=== PATIENT | male | born 1980 | race Caucasian/White ===

== ENCOUNTER 2023-04-11 19:27 | Emergency (ER) | payer MEDICAID, SELFPAY ==
[2023-04-11 19:36] VITALS: BP 132/73; PULSE 81; RESP 14; TEMP 36.7; O2SAT 98; BMI 28.1
[2023-04-11 20:01] VITALS: BP 144/95; PULSE 68; RESP 18; O2SAT 99
--- NOTE | 2023-04-11 20:13 | PC.NURSE ---
in room talking with patient at this tie.
--- NOTE | 2023-04-11 20:16 | CT_ITS ---
PROCEDURE INFORMATION: Exam: CT Head Without Contrast Exam date and time: 04/11/2023 8:42 PM Age: 43 years old Clinical indication: Injury or trauma; Blunt trauma (contusions or hematomas); Additional info: Blunt trauma anterior calvarium TECHNIQUE: Imaging protocol: Computed tomography of the head without contrast. Radiation optimization: All CT scans at this facility use at least one of these dose optimization techniques: automated exposure control; mA and/or kV adjustment per patient size (includes targeted exams where dose is matched to clinical indication); or iterative reconstruction. REPORTING DATA: Count of CT and Cardiac NM exams in prior 12 months: This patient has received 0 known CTs and 0 known cardiac nuclear medicine studies in the 12 months prior to the current study. COMPARISON: No relevant prior studies available. FINDINGS: Brain: No intracranial hemorrhage. No mass. No edema. Cerebral ventricles: No hydrocephalus. Paranasal sinuses: No acute sinusitis. Mastoid air cells: No significant effusion. Orbital cavities: Unremarkable as visualized. Bones/joints: No acute fracture. Soft tissues: Minimal scalp swelling. IMPRESSION: No intracranial hemorrhage.
--- NOTE | 2023-04-11 20:17 | [facility].EDGENADL ---
Discharge Plan Disposition Patient Disposition: Home, Self-Care Prescriptions Prescriptions: No Action methadone 40 mg Tablet,Soluble 75 mg PO DAILY Referrals Follow up/Referrals: Provider,Referral, MD [Primary Care Provider] - See instructions Clinical Impressions Clinical Impression: Blunt trauma, Laceration of scalp Instructions Patient Instructions: DI for Laceration Repair Discharge ED Provider: Damion Scott General Adult HPI General Chief complaint: Wound/Laceration Stated complaint: AO 04/11 1900 lac to head Time Seen by Provider: 04/11/23 20:00 Mode of Arrival: Family Vehicle Source of Information: Patient Limitations: No Limitations Description of Symptoms (Recalled from ER Triage Doc. by RN): 43 yo male presents with CC of head laceration. Patient states he was helping cut down a tree when a limb approximately 3 inches in diameter dislodged and fell hitting me in the top of the head . Friend reports moderate amount of bleeding that was resolved by a pressure dressing. Denies LOC, no visual disturbances. History of Present Illness HPI narrative: Patient is a 43-year-old male with no pertinent past medical history who presents emergency department for evaluation of blunt trauma. Patient was burning brush with diesel when a approximately 3 inch diameter limb came down and struck him in the frontal scalp. Due to bleeding wound he presents here for continued valuation. Patient had near syncopal event after being struck however no true syncope. Denies other traumatic complaints. Last tetanus last year. No other acute complaints at this time. Related Data Home Medications Medication Instructions Recorded Confirmed methadone 40 mg soluble tablet 75 mg PO DAILY prevent relapse 04/11/23 04/11/23 Allergies Allergy/AdvReac Type Severity Reaction Status Date / Time No Known Allergies Allergy Verified 04/11/23 19:41 [facility] Disclaimer: The information contained in this section may have been updated after the patient was seen, as this information can be updated by other users. Social History Smoking Status: Unknown if ever smoked alcohol intake: never current occupational status: employed Travel in the last 8 weeks: None ROS Obtained: Yes Systems reviewed as appropriate & no additional complaints except as documented Physical Exam General General appearance: alert and in no apparent distress Head Head exam: normocephalic and other (Jagged laceration totaling approximately 10 cm over the frontal scalp that is oozing blood. Well approximated.) Eye Eye exam: Present PERRL and EOMI ENT ENT exam: Present mucous membranes moist and other (Tender central and lateral maxillary incisors, no excess laxity, jaw tenderness) Neck Neck exam: Present normal inspection and full ROM; Absent tenderness Chest Chest inspection: Present normal inspection and symmetric chest wall rise Respiratory Respiratory exam: Absent respiratory distress Cardiovascular Cardiovascular exam: Present regular rate and normal rhythm Abdominal Exam Abdominal exam: Present soft; Absent tenderness Extremities Exam Extremities exam: Present normal inspection Neurological Exam Neurological exam: Present alert Psychiatric Psychiatric exam: Present normal affect Skin Skin exam: Present warm and dry Medical Decision Making Timothy Inquiry Pt receiving controlled substance: No Vital Signs: 04/11/23 19:36 04/11/23 20:01 Temperature 98.0 F Temperature Source Oral Pulse Rate 68 Pulse Rate [Right Brachial] 81 Respiratory Rate 14 18 Blood Pressure 144/95 H Blood Pressure [Right Arm] 132/73 Blood Pressure Mean 111 Blood Pressure Mean [Right Arm] 92 Blood Pressure Source [Right Arm] Automatic Cuff Blood Pressure Position [Right Arm] Sitting 02 Sat by Pulse Oximetry 98 99 Oxygen Delivery Method Room Air Room Air Orders (Tests/Meds): ED MEDICATIONS Discontinued Medications Ge
--- NOTE | 2023-04-11 20:38 | PC.NURSE ---
Laceration cleaned and LAC applied to laceration. Patient to CT
--- NOTE | 2023-04-11 20:50 | PC.NURSE ---
rounded on pt and took him something to drink.
--- NOTE | 2023-04-11 21:18 | CT_ITS ---
PROCEDURE INFORMATION: Exam: CT Maxillofacial Without Contrast Exam date and time: 04/11/2023 9:26 PM Age: 43 years old Clinical indication: Jaw pain; Additional info: Anterior mandible pain, trauma TECHNIQUE: Imaging protocol: Computed tomography of the face without contrast. Radiation optimization: All CT scans at this facility use at least one of these dose optimization techniques: automated exposure control; mA and/or kV adjustment per patient size (includes targeted exams where dose is matched to clinical indication); or iterative reconstruction. REPORTING DATA: Count of CT and Cardiac NM exams in prior 12 months: This patient has received 0 known CTs and 0 known cardiac nuclear medicine studies in the 12 months prior to the current study. COMPARISON: No relevant prior studies available. FINDINGS: Orbital cavities: Unremarkable as visualized. Bones/joints: No acute fracture. Paranasal sinuses: Unremarkable. No air-fluid levels. Soft tissues: Unremarkable. IMPRESSION: No fracture.
--- NOTE | 2023-04-11 21:19 | PC.NURSE ---
Rounded on patient nothing needed at this time. Lights dimmed; nothing else needed at this time. Call light within reach
[2023-04-11 21:54] VITALS: BP 125/84; PULSE 53; RESP 16; TEMP 36.6
--- NOTE | 2023-04-11 22:00 | PC.NURSE ---
Rounded on patient , no needs voiced at this time.
== END 2023-04-11 22:10 | disposition home or self-care (01) ==
PROVIDERS: Emergency Provider Emergency Medicine
DX: S09.90XA Unspecified injury of head, initial encounter (principal); S01.01XA Laceration without foreign body of scalp, initial encounter; W20.8XXA Other cause of strike by thrown, projected or falling object, initial encounter
CPT/HCPCS: 12004; 70450; 70486; 99284